=== PATIENT | male | born 1975 | race Caucasian/White ===

== ENCOUNTER → 2018-09-24 | Outpatient (CLI) | payer MEDICARE, OTHER ==
--- NOTE | 2018-09-24 12:04 | XR ---
EXAMINATION TYPE: XR toes RT DATE OF EXAM: 09/24/2018 COMPARISON: NONE HISTORY: Pain TECHNIQUE: 3 views submitted FINDINGS: There is a round lucent lesion involving the distal phalanx first digit. Soft tissue edema noted. Arthropathy first MTP joint. IMPRESSION: Rounded lucency distal phalanx first digit with adjacent soft tissue swelling. Findings c ould been the basis of osteomyelitis. Intraosseous lesion not excluded. Correlate with triple phase b one scan.
--- NOTE | 2018-09-24 12:07 | FL ---
Modified barium swallow. HISTORY: Dysphagia. Modified barium swallow was performed with the department of speech pathology. The patient was prese nted with various consistencies of barium. There is no evidence for aspiration or penetration. Full report is to follow from the department of speech pathology. Impression: Normal study.
== END | disposition home or self-care (01) ==
LOC: RADFLMAIN 10:56 → EEVIPCON 11:00
PROVIDERS: ATTEND Family Medicine
DX: M79.89 Other specified soft tissue disorders (principal); R13.10 Dysphagia, unspecified; M10.9 Gout, unspecified
CPT/HCPCS: 36415; 74230; 84550

== ENCOUNTER → 2018-11-13 | Outpatient (CLI) | payer MEDICARE, OTHER ==
--- NOTE | 2018-11-13 10:09 | FL ---
EXAMINATION TYPE: FL barium swallow DATE OF EXAM: 11/13/2018 CLINICAL HISTORY: Dysphagia TECHNIQUE: A double contrast esophagram is performed utilizing air and barium. A total of 2 minutes seconds of fluoroscopic time was utilized during procedure. 53 fluoroscopic images were saved. COMPARISON: None FINDINGS: The esophagus shows abnormal motility focally in the upper cervical esophagus with undulati on near the thoracic inlet marked multiple images but best seen on image 32 and 46. This area is sli ghtly narrowed without dilatation of the esophagus proximal to this. No evidence of hiatal hernia or stricture noted. No significant gastroesophageal reflux was seen during real time performance of this study. IMPRESSION: 1. Esophageal irregularity and abnormal motility focally in the upper cervical esophagus in the patie nt's area of dysphagia. Further evaluation with endoscopy is recommended as this persists throughout the examination and does not appear to represent esophageal spasm. This is associated with mild narro wing. 2. Trace laryngeal penetration.
== END | disposition home or self-care (01) ==
LOC: RADUSWWP 08:59
PROVIDERS: ATTEND Otolaryngology Plastic Surgery within the Head & Neck
DX: K22.2 Esophageal obstruction (principal)
CPT/HCPCS: 74220

== ENCOUNTER → 2023-08-25 | Outpatient (CLI) | payer MEDICARE, OTHER ==
--- NOTE | 2023-08-25 19:14 | XR ---
EXAMINATION TYPE: XR ankle complete RT DATE OF EXAM: 08/25/2023 5:45 PM CLINICAL INDICATION:Male, 47 years old with history of M25.571 PAIN IN RT ANKLE, M79.671 PAIN IN RT F OOT; pain for weeks, no known injury, patient poor historian COMPARISON: None. TECHNIQUE: 3 views right foot, 3 views right ankle. FINDINGS: Osseous mineralization appears appropriate. No lytic/blastic lesion or aggressive periostitis. Tibiot alar joint appears maintained. Ankle mortise appears within normal limits. Osseous structures of foot appear intact and normally aligned. There is a moderate-sized plantar calcaneal spur. Mild/moderate degenerative changes throughout the foot, appears greatest at the great toe MTP joint and there is al so slight hallux vagus and bunion deformity. No osseous erosions seen. Otherwise unremarkable soft ti ssues without radiopaque foreign body seen. IMPRESSION: 1. No evidence of an acute bony abnormality. 2. Chronic/degenerative findings, as above.
== END | disposition home or self-care (01) ==
LOC: RADXRMAIN 17:25
PROVIDERS: ATTEND Family Medicine
DX: M25.571 Pain in right ankle and joints of right foot (principal); M79.671 Pain in right foot